=== PATIENT | female | born 1995 | race Hispanic/Latino ===

== ENCOUNTER 2021-08-14 05:31 | Emergency (ER) | payer SELFPAY ==
[2021-08-14] MEDS ORDERED: Ondansetron PF 4 MG/2 ML Vial ONE (05:47)
[2021-08-14] MEDS ORDERED: Morphine 4 MG/ML VIAL ONE ×2 (05:47→06:13)
[2021-08-14 06:32] LABS: Bacteria/HPF None Seen HPF (None Seen); Bilirubin Negative (Negative); Blood, Urine 1+ (Negative); Clarity Clear (Clear); Glucose, Urine (Dipstick) Normal (Negative); Ketone, Urine Greater than 150 mg/dL (Negative); Leukocyte Negative Leu/uL (Negative); Mucous/LPF 1+ LPF (<2+); Nitrite Negative (Negative); Pregnancy Test - Urine (BHCG) Negative (Negative); Pregu Control Background? CLEAR/WHITE (CLR/WHITE); Pregu Control Bar Appear? YES (CONTROL BAR); Protein, Urine (Dipstick) 20 mg/dL (Neg-Trace); Specific Gravity 1.028 (1.002-1.036); Specific Gravity, Urine 1.028 (1.002-1.036); Squamous Epithelial 0-3 HPF (0-3); Urobilinogen Normal mg/dL (Less than 2)
[2021-08-14] MEDS ORDERED: Ketorolac Tromethamine 30 MG/ML VIAL ONE (06:39)
== END 2021-08-14 07:56 | disposition home or self-care (01) ==
LOC: ERS 05:31
DX: N13.2 Hydronephrosis with renal and ureteral calculous obstruction (principal); R11.2 Nausea with vomiting, unspecified; Z79.899 Other long term (current) drug therapy
CPT/HCPCS: 74176; 81003; 81015; 81025; 96374; 96375; J1885; J2270; J2405

== ENCOUNTER 2024-12-12 18:15 | Emergency (ER) | payer BC, SELFPAY ==
[2024-12-12] MEDS ORDERED: Acetaminophen 325 MG TAB ONE (19:51)
[2024-12-12] MEDS ORDERED: Ibuprofen 200 MG TAB ONE (19:51)
[2024-12-12] MEDS ORDERED: diphenhydrAMINE 25 MG CAP ONE (19:51)
== END 2024-12-12 21:04 | disposition home or self-care (01) ==
LOC: ERS 18:15
DX: J10.1 Influenza due to other identified influenza virus with other respiratory manifestations (principal)
CPT/HCPCS: 87428; 99284

== ENCOUNTER 2025-07-09 10:02 | Emergency (ER) | payer SELFPAY ==
[2025-07-09] MEDS ORDERED: Ketorolac Tromethamine 30 MG (1 mL) VIAL ONE (11:17)
== END 2025-07-09 11:42 | disposition home or self-care (01) ==
LOC: ERS 10:02
DX: S16.1XXA Strain of muscle, fascia and tendon at neck level, initial encounter (principal); S20.211A Contusion of right front wall of thorax, initial encounter; V43.62XA Car passenger injured in collision with other type car in traffic accident, initial encounter
CPT/HCPCS: 71046; 96372; J1885